=== PATIENT | male | born 1960 | race Caucasian/White ===

== ENCOUNTER 2019-04-11 08:10 | Day surgery (SDC) | payer OTHER ==
[2019-04-11] VITALS (7 sets, daily range): BP systolic 114–166; BP diastolic 71–83; PULSE 63–90; TEMP 97.7–97.9
[~2019-04-11] VITALS: Ht 175.3 cm; Wt 69.5 kg
[2019-04-11] MEDS ORDERED: ATROVENT I0.2 MG/1 M IH (08:47)
[2019-04-11] MEDS ORDERED: NORCO 325 MG-51 TAB PO (08:47)
[2019-04-11] MEDS ORDERED: VENTOLIN0.09 MG IH (08:48)
[2019-04-11] MEDS ORDERED: HYZAAR 12.5 MG-1 TAB PO (08:49)
[2019-04-11] MEDS ORDERED: NORVASC 5MG5 MG/TAB PO (08:49)
--- NOTE | 2019-04-11 09:00 | NUR ---
MARY Kraft cancels Chlorhexidine scrub order due to plaster splint/PONCHO wrap on left lower extremity.
--- NOTE | 2019-04-11 15:45 | NUR ---
Patient arrives back to [facility] alert, reports pain is under control, denies nausea, oxygen therapy in place. Patient monitor applied, vitals stable. Patient's family no longer in the waiting room. Patient given water and pudding.
--- NOTE | 2019-04-11 16:00 | NUR ---
Left ankle is elevated with ice pack in place.
--- NOTE | 2019-04-11 16:15 | NUR ---
Patient resting comfortably and eating pudding and crackers at this time. Patient reports pain is doing ok. Vitals stable. Oxygen therapy turned off.
--- NOTE | 2019-04-11 16:35 | NUR ---
Patient rates pain in left lower leg 7/10 at this time. PRN pain medication given.
--- NOTE | 2019-04-11 16:50 | NUR ---
Patient report and care given to JOANA Rudd at this time.
--- NOTE | 2019-04-11 17:00 | NUR ---
Pt has no complaints and is rating pain at 6/10 and "tolerable." Pt desires to go home.
--- NOTE | 2019-04-11 17:30 | NUR ---
Discharge instructions given to patient and family. All questions answered to their satisfaction. Handed to them are discharge instructions, diagnosis information, a thank you card, a prescription, and a patient health summary.
--- NOTE | 2019-04-11 17:45 | NUR ---
Pt transferred out of hospital via wheelchair with left leg elevated. This RN assist with family and friend accompanying. Transferred to private vehicle driven by friend.
== END 2019-04-11 17:45 | disposition home or self-care (01) ==
LOC: SDCO 08:10
DX: S82.842A Displaced bimalleolar fracture of left lower leg, initial encounter for closed fracture (principal); W00.0XXA Fall on same level due to ice and snow, initial encounter; J44.9 Chronic obstructive pulmonary disease, unspecified; Z87.891 Personal history of nicotine dependence
CPT/HCPCS: C1713; J0690; J1100; J1170; J1885; J2405; J2704; J3010; J7120